=== PATIENT | male | born 1950 | race Two or more races ===

== ENCOUNTER 2021-05-14 07:29 | Outpatient (CLI) | payer OTHER | END 2021-05-14 07:36 | disposition home or self-care (01) | LOC: LAB 07:29 | PROVIDERS: ATTEND General Practice | DX: E11.69 Type 2 diabetes mellitus with other specified complication (principal); R19.5 Other fecal abnormalities; E03.9 Hypothyroidism, unspecified; E55.9 Vitamin D deficiency, unspecified; D64.9 Anemia, unspecified; E78.00 Pure hypercholesterolemia, unspecified; N40.0 Benign prostatic hyperplasia without lower urinary tract symptoms; N39.0 Urinary tract infection, site not specified; R80.1 Persistent proteinuria, unspecified; J45.909 Unspecified asthma, uncomplicated ==